=== PATIENT | female | born 1975 | race African-American/Black ===

== ENCOUNTER → 2020-06-09 | Emergency (ER) | payer OTHER ==
[~2020-06-09] VITALS: Ht 172.7 cm; Wt 100.7 kg
[2020-06-10 04:32] VITALS: BP 132/68
== END ==
LOC: ER 22:56
DX: K08.89 Other specified disorders of teeth and supporting structures (principal); Z53.21 Procedure and treatment not carried out due to patient leaving prior to being seen by health care provider